=== PATIENT | male | born 1970 | race Caucasian/White ===

== ENCOUNTER 2021-10-07 00:44 | Emergency (ER) | payer OTHER ==
[2021-10-07] MEDS ORDERED: NAPROXEN500 MG PO (03:04)
[2021-10-07] MEDS ORDERED: NORCO 5-325 TA1 EACH PO (03:04)
== END 2021-10-07 03:26 | disposition home or self-care (01) ==
LOC: FER 00:44
DX: M25.512 Pain in left shoulder (principal); M25.522 Pain in left elbow; D17.22 Benign lipomatous neoplasm of skin and subcutaneous tissue of left arm; I10 Essential (primary) hypertension; E11.9 Type 2 diabetes mellitus without complications; Z20.822 Contact with and (suspected) exposure to COVID-19; Z79.84 Long term (current) use of oral hypoglycemic drugs; Z79.899 Other long term (current) drug therapy; Z88.0 Allergy status to penicillin; Z88.5 Allergy status to narcotic agent; W01.0XXA Fall on same level from slipping, tripping and stumbling without subsequent striking against object, initial encounter; Y92.009 Unspecified place in unspecified non-institutional (private) residence as the place of occurrence of the external cause
CPT/HCPCS: 73020; 73070